=== PATIENT | female | born 1995 ===

== ENCOUNTER 2019-10-19 20:50 | Outpatient (CLI) | payer OTHER ==
[~2019-10-19] VITALS: Ht 160 cm; Wt 101.7 kg
--- NOTE | 2019-10-19 20:50 | NUR ---
TARI TRAMMELL presented to unit via from ED, accompanied by FAMILY, with c/o PRESSURE 37 WKS PREG. TARI TRAMMELL weighed, gowned, voided, and to bed. EFHM and TOCO applied, VS taken. TARI TRAMMELL oriented to bed controls, call light, TV, heat, and A/C controls.
--- NOTE | 2019-10-19 21:00 | NUR ---
sve performed 3cm/75%
[2019-10-19] MEDS ORDERED: PREN-142 PO (21:03)
[2019-10-19 21:15] VITALS: BP 129/80
[2019-10-19 21:18] LABS: BILIRUBIN,URINE NEGATIVE (NEGATIVE); CLARITY,URINE CLEAR; COLOR,URINE YELLOW; GLUCOSE, URINE (UA) 3+ (NEGATIVE); KETONES,URINE NEGATIVE (NEGATIVE); LEUKOCYTE ESTERASE ,URINE 3+ (NEGATIVE); NITRITE,URINE NEGATIVE (NEGATIVE); PROTEIN,URINE NEGATIVE (NEGATIVE)
[2019-10-19 21:20] VITALS: BP 125/71
[2019-10-19 21:27] LABS: BACTERIA,URINE FEW /HPF; WBC,URINE 25-50 /HPF
[2019-10-19 22:14] VITALS: BP 141/80
--- NOTE | 2019-10-19 22:14 | NUR ---
notified of pt's arrival, exam, sve, ctx pattern, u/a results. Discharge order received.
[2019-10-19 22:25] VITALS: BP 127/79
--- NOTE | 2019-10-19 22:30 | NUR ---
Discharge instructions verbalized with patient. labor precautions given. pt verbalized understanding. pt dc'd home with family at side. will follow up with
--- NOTE | 2019-10-21 10:38 | Physician Query-Final Dx ---
Clinic Account Progress/Dx Physician Query: Please give diagnosis Please include # weeks gestation Date of Service Oct 19, 2019 at 20:50 ALETA GREGORIO Oct 21, 2019 10:38
[2019-10-25] MEDS ORDERED: IBUP-844 PO (22:55)
[2019-10-25] MEDS ORDERED: DOCU100C37 PO (22:55)
[2019-10-25] MEDS ORDERED: ACHD5005 PO (22:55)
[2019-10-25] MEDS ORDERED: DIBU30OI TOP (22:55)
[2019-10-25] MEDS ORDERED: BENZ78AE2 TP (22:55)
== END 2019-10-19 22:30 | disposition home or self-care (01) ==
LOC: WSo 20:50 → LDRP 20:50 → WSo 22:30
PROVIDERS: ATTEND Obstetrics & Gynecology
DX: O26.893 Other specified pregnancy related conditions, third trimester (principal); R10.2 Pelvic and perineal pain; Z3A.37 37 weeks gestation of pregnancy
CPT/HCPCS: 81000; 87088; 99213

== ENCOUNTER 2019-10-25 02:48 | Inpatient (IN) | payer OTHER ==
[~2019-10-25] VITALS: Ht 160 cm; Wt 102.9 kg
[2019-10-25] VITALS (83 sets, daily range): BP systolic 75–147; BP diastolic 36–95
[~2019-10-25 02:48] MED LIST: PREN-142 PO
--- NOTE | 2019-10-25 02:55 | NUR ---
TARI ASTORGA presented to unit via ambulation from ED, accompanied by family, with c/o CONTRACTIONS. TARI ASTORGA weighed, gowned, voided, and to bed. EFHM and TOCO applied, VS taken. TARI ASTORGA oriented to bed controls, call light, TV, heat, and A/C controls.
--- NOTE | 2019-10-25 06:05 | NUR ---
0605: Strip reviewed with Dr. Wellington at this time. 0607: orders to admit pt and and start IV at this time, then we will break water after IV is placed.
[2019-10-25] MEDS ORDERED: D5 LR IV SOLUTION 1,000 ML IV ONE (06:07)
--- NOTE | 2019-10-25 06:13 | History & Physical-OB ---
OB - Chief Complaint & HPI Date/Time Date of Admission: Date of Admission: 10/25/2020 Date seen by a Provider: Oct 25, 2019 Time Seen by a Provider: 06:12 Chief Complaint/History OB-Reason for Admission/Chief: Onset of Labor Hx : 1 Hx Para: 0 Expected Date of Delivery: Nov 05, 2019 Gestational Age in Weeks: 38 Gestational Age in Days: 3 Other reason for admission: Prolonged tachycardia Admission Nurse Assessment Rev: Yes History of Labs B pos Antibody neg RI RPR NR HBsAg NR HIV NR GC neg GBS pos Allergies and Home Medications Allergies Coded Allergies: No Known Drug Allergies (Unverified , 10/19/19) Home Medications Vit No.124/Iron/FA 1 Each Tablet, 1 EACH PO DAILY, (Reported) Patient Home Medication List Home Medication List Reviewed: Yes OB - History Hx of Present Care: Yes Ultrasounds: Normal mid trimester US Obstetrical Complications: None Medical Complications: None Obstetrical History Hx : 1 Hx Para: 0 Patient Past Medical History n/a Social History/Family History Recent Infectious Disease Expo: No Alcohol Use: Denies Use Recreational Drug Use: No 2nd Hand Smoke Exposure: No Immunizations Date of Influenza Vaccine: Jun 30, 2019 OB - Admission Exam Physical Exam Vitals: Vital Signs 10/25/19 03:25 Temp 36.6 Pulse 120 Resp 18 Pulse Ox 99 O2 Delivery Room Air HEENT: NCAT Heart: Rhythm Normal Lungs: Clear Abdomen: Gravid Extremities: Normal Reflexes: Normal Cervical Dilatation: 3cm Effacement: 75% Station: -1 Membranes: Intact Amniotic Fluid: Clear Heart Rate: 130's Accelerations: Accelerations Present Decelerations: No Decelerations Short Term Variability: Present Half-Way Variability: Average (6-25) Contractions on Admission: < 5 Minutes Apart Intensity: Firm OB - Assessment/Plan/Diagnosis Assessment Assessment: active labor Admission Dx 24 yo @ 38.3 weeks Active labor Prolonged tachycardia GBS pos Admission Status: Inpatient Order (span 2 midnights) Reason for Inpatient Admission: 38 week IUP, Active labor Plan Plan: Other (AROM and epidural at request. Start GBS prophylaxis) EAMON VALENCIA DO Oct 25, 2019 06:13
[2019-10-25] MEDS ORDERED: AMPICILLIN FOR IV USE 2,000 MG in WATER (STERILE) FOR INJECTION 14.8 ML IV ONE (06:15)
[2019-10-25] MEDS ORDERED: AMPICILLIN FOR IV USE 2,000 MG VIAL ONE (06:27)
[2019-10-25] MEDS ORDERED: WATER (STERILE) FOR INJECTION 20 ML ONE (06:34)
[2019-10-25] MEDS ORDERED: D5 LR IV SOLUTION 1,000 ML IV SCH (07:13)
[2019-10-25] MEDS ORDERED: MINERAL OIL CONCENTRATE 99.9% 15 ML UDC TOP PRN (07:15)
[2019-10-25] MEDS ORDERED: SUFENTA 0.6MCG/ML BUPIVA 0.125 100 ML ONE (07:19)
[2019-10-25 07:24] LABS: BASOPHILS % (AUTO) 0 % (0-10); EOSINOPHILS # (AUTO) 0.1 10^3/uL (0.0-0.3); EOSINOPHILS % (AUTO) 1 % (0-10); HEMATOCRIT 35 % (35-52); HEMOGLOBIN 11.7 G/DL (11.5-16.0); LYMPHOCYTES # (AUTO) 1.9 X 10^3 (1.0-4.0); LYMPHOCYTES % (AUTO) 17 % (12-44); MEAN CORPUSCULAR HEMOGLOBIN 28 PG (25-34); MEAN CORPUSCULAR HGB CONC 33 G/DL (32-36); MEAN CORPUSCULAR VOLUME 84 FL (80-99); MONOCYTES # (AUTO) 0.8 X 10^3 (0.0-1.0); MONOCYTES % (AUTO) 7 % (0-12); NEUTROPHILS # (AUTO) 8.2 X 10^3 (1.8-7.8); NEUTROPHILS % (AUTO) 75 % (42-75); PLATELET COUNT 303 10^3/uL (130-400); RED CELL DISTRIBUTION WIDTH 13.5 % (10.0-14.5); WHITE BLOOD COUNT 10.9 10^3/uL (4.3-11.0)
[2019-10-25] MEDS ORDERED: BUPIVACAINE 0.25% 30 ML (SENSORCAINE) VIAL ONE (08:03)
[2019-10-25] MEDS ORDERED: fentaNYL INJECTION 100 MCG/2 ML AMP ONE (08:03)
[2019-10-25] MEDS: EPIDURAL (SUFENTA 0.6MCG/ML BUPIVA 0.125%) 100 ML BAG EPI SCH ×2 (08:35→17:12)
--- NOTE | 2019-10-25 08:35 | NUR ---
0807 here for epidural placement. Procedure explained, consent reviewed and signed by anesthesia. Questions answered to patient's satisfaction. Time out taken to verify correct patient/procedure. 0811 Patient up to side of bed, assisted into sitting position. 0815 Betadine prep done x3 and sterile drape applied. Local done, see anesthesia record. 0832 Test dose given, see anesthesia record for drug and dosage. 0831 Epidural catheter secured in place. Epidural placement complete. 0835 Assisted back into bed, monitors adjusted. Epidural dosed, see anesthesia record. 0835 Epidural of Sufenta/Bupvicaine @12cc/hr stated per pump. Patient tolerated procedure well.
[2019-10-25] MEDS: OXYTOCIN/NORMAL SALINE 500 ML IV SCH ×2 (09:29→22:48)
[2019-10-25] MEDS: AMPICILLIN FOR IV USE 1,000 MG in WATER (STERILE) FOR INJECTION 7.4 ML IV SCH ×3 (10:27→18:39)
[2019-10-25] MEDS ORDERED: LACTATED RINGERS 1,000 ML IV ONE (11:25)
[2019-10-25] MEDS ORDERED: NALOXONE 0.4 MG/ML 1 ML (NARCAN) VIAL IV PRN (11:30)
[2019-10-25] MEDS ORDERED: diphenhydrAMINE 50 MG/ML INJ (BENADRYL) IV PRN (11:30)
[2019-10-25] MEDS ORDERED: CATHETER FLUSH 10 ML SYR IV PRN (11:30)
[2019-10-25] MEDS ORDERED: ONDANSETRON 4 MG/2 ML (SDV) Z0FRAN IV PRN (11:30)
[2019-10-25] MEDS ORDERED: CATHETER FLUSH 10 ML SYR IV SCH (14:00)
[2019-10-25] MEDS ORDERED: LIDOCAINE/EPI 2% 1:200,00 (XYLOCAINE) 10 ML VIAL ONE (21:37)
[2019-10-25] MEDS ORDERED: OXYTOCIN/NORMAL SALINE 500 ML IV SCH (22:46)
--- NOTE | 2019-10-25 22:53 | OB Labor & Delivery Record ---
L&D History Date of Service Date of Service: Oct 25, 2019 History Expected Date of Delivery: Nov 05, 2019 Gestational Age in Weeks: 38 Hx : 1 Hx Para: 0 Complications Events: Routine care Operative Indications (Cesarea: N/A-Vaginal Delivery Intrapartal Events: None L&D Stage1 Stage One Onset of Labor - Date: Oct 25, 2019 Monitors and Tracing Monitor Mode: External Heart Rate: 175 Monitor Decelerations: None Station: -1 Senior Living Variability: Average (6-10) Short Term Variability: Present Presentation: Vertex Vital Signs VS - Last 72 Hours, by Label 10/25/19 10/25/19 10/25/19 10/25/19 03:05 03:25 07:47 08:00 Temp 36.1 36.6 37.2 36.6 Pulse 120 120 113 120 Resp 20 18 20 18 B/P (MAP) 127/77 (94) 125/72 (89) Pulse Ox 97 99 99 99 O2 Delivery Room Air Room Air Room Air Room Air 10/25/19 10/25/19 10/25/19 10/25/19 08:18 08:31 08:34 08:37 Pulse 114 112 120 130 Resp 20 20 20 22 B/P (MAP) 112/78 (89) 113/65 (81) 91/56 (68) 79/42 (54) Pulse Ox 99 99 99 99 O2 Delivery Room Air Room Air Room Air Room Air 10/25/19 10/25/19 10/25/19 10/25/19 08:38 08:39 08:43 08:45 Temp 37.6 Pulse 130 129 100 Resp 20 20 18 B/P (MAP) 79/42 (54) 75/36 (49) 99/50 (66) Pulse Ox 99 100 95 O2 Delivery Room Air Room Air Room Air 10/25/19 10/25/19 10/25/19 10/25/19 08:47 08:53 08:55 09:00 Pulse 125 136 146 143 Resp 18 18 18 18 B/P (MAP) 98/51 (67) 91/53 (66) 117/65 (82) 112/55 (74) Pulse Ox 97 99 100 100 O2 Delivery Room Air Room Air Room Air Room Air 10/25/19 10/25/19 10/25/19 10/25/19 09:05 09:10 09:15 09:20 Pulse 127 131 131 129 Resp 18 18 20 20 B/P (MAP) 112/66 (81) 110/72 (85) 108/70 (83) 106/65 (79) Pulse Ox 97 99 99 97 O2 Delivery Room Air Room Air Room Air Room Air 10/25/19 10/25/19 10/25/19 10/25/19 09:25 09:30 09:35 09:40 Temp 36.7 Pulse 115 120 116 125 Resp 20 20 20 20 B/P (MAP) 118/67 (84) 116/72 (87) 109/68 (82) 111/68 (82) Pulse Ox 100 98 99 96 O2 Delivery Room Air Room Air Room Air Room Air 10/25/19 10/25/19 10/25/19 10/25/19 09:45 09:50 09:55 10:00 Pulse 127 125 127 132 Resp 20 20 20 20 B/P (MAP) 101/66 (78) 98/66 (77) 113/61 (78) 113/68 (83) Pulse Ox 98 98 97 99 O2 Delivery Room Air Room Air Room Air Room Air 10/25/19 10/25/19 10/25/19 10/25/19 10:15 10:30 10:45 11:00 Temp 37.4 Pulse 127 124 126 122 Resp 20 20 20 18 B/P (MAP) 101/66 (78) 103/67 (79) 109/64 (79) 102/56 (71) Pulse Ox 98 98 98 99 O2 Delivery Room Air Room Air Room Air Room Air 10/25/19 10/25/19 10/25/19 10/25/19 11:15 11:30 11:45 12:00 Pulse 130 111 107 134 Resp 18 18 18 18 B/P (MAP) 119/76 (90) 114/68 (83) 119/72 (88) 95/61 (72) Pulse Ox 98 97 95 97 O2 Delivery Room Air Room Air Room Air Room Air 10/25/19 10/25/19 10/25/19 10/25/19 12:15 12:30 12:45 13:00 Temp 37.7 Pulse 110 118 124 106 Resp 18 18 18 18 B/P (MAP) 117/72 (87) 104/64 (77) 108/70 (83) 114/71 (85) Pulse Ox 97 96 98 97 O2 Delivery Room Air Room Air Room Air Room Air 10/25/19 10/25/19 10/25/19 10/25/19 13:15 13:30 13:45 14:00 Temp 37.1 Pulse 105 112 117 122 Resp 18 18 18 18 B/P (MAP) 123/75 (91) 108/68 (81) 108/74 (85) 116/72 (87) Pulse Ox 99 97 99 98 O2 Delivery Room Air Room Air Room Air Room Air 10/25/19 10/25/19 10/25/19 10/25/19 14:15 14:30 14:45 15:00 Pulse 100 116 110 116 Resp 18 18 18 18 B/P (MAP) 118/74 (89) 102/71 (81) 126/77 (93) 117/78 (91) Pulse Ox 95 95 99 99 O2 Delivery Room Air Room Air Room Air Room Air 10/25/19 10/25/19 10/25/19 10/25/19 15:15 15:30 15:45 16:00 Temp 37.2 Pulse 105 110 107 111 Resp 18 18 18 18 B/P (MAP) 119/81 (94) 114/74 (87) 117/80 (92) 121/84 (96) Pulse Ox 99 98 100 100 O2 Delivery Room Air Room Air Room Air Room Air 10/25/19 10/25/19 10/25/19 10/25/19 16:15 16:30 16:40 17:00 Temp 37.6 Pulse 113 99 111 108 Resp 18 18 18 18 B/P (MAP) 125/86 (99) 125/86 (99) 123/71 (88) 118/79 (92) Pulse Ox 99 97 100 100 O2 Delivery Room Air Room Air Room Air Room Air 10/25/19 10/25/19 10/25/19 10/25/19 17:15 17:30 17:45 18:00 Pulse 103 112 101 115 Resp 18 18 18 18 B/P (MAP) 129/79 (96) 147/73 (97) 147/73 (97) 135/71 (92) Pulse Ox 100 100 100 100 O2 Delivery Room Air Room Air Room Air Room Air 10/25/19 10/25/19 10/25/19 10/25/19 18:15 18:30 18:45 19:00 Pulse 101 112 111 114 Resp 18 18 18 18 B/P (MAP) 128/73 (91) 123/81 (95) 117/79 (92) 134/83 (100) Pulse Ox 100 100 100 100 O2 Delivery Room Air Room Air Room Air Room Air 10/25/19 10/25/19 10/25/19 10/25/19 19:15 19:30 19:45 20:00 Temp 36.8 Pulse 109 110 118 123 Resp 18 18 18 18 B/P (MAP) 135/95 (108) 103/59 (74) 125/83 (97) 128/82 (97) Pulse Ox 100 100 100 99 O2 Delivery Room Air Room Air Room Air Room Air 10/25/19 10/25/19 20:15 20:30 Pulse 115 123 Resp 18 18 B/P (MAP) 129/81 (97) 111/58 (75) Pulse Ox 100 100 O2 Delivery Room Air Room Air Rupture of Membranes Spontaneous Ruture of Membrane: No Amniotic Membrane Rupture Time: 0700 Amniotic Membrane Fluid Desc.: Clear Vaginal Bleeding Description: Normal Show Induction/Anesthesia Epidural Cath Placement - Time: 0831 Progress/Notes Patient admitted and augmented in labor due to prolonged tachycardia, AROM and Pitocin to max dose of 20 mu. Progressed to complete and +2 station L&D Stage2 Stage Two Stage II Date: Oct 25, 2019 Monitors and Tracing Monitor Mode: External Heart Rate: 175 Monitor Accelerations: Uniform Monitor Decelerations: None [employer] Counsel Variability: Average (6-10) Short Term Variability: Present Position: Right Occiput Anterior Presentation: Vertex Cord Descript/Complications Cord Vessel Description: 3 Vessels Complications nuchal cord x 1 Delivery Type Infant Delivery Method: Spontaneous Vaginal Anterior Shoulder: Right Episiotomy/Perineal Laceration Laceraction(s)/Extensions: Yes Episiotomy Description: Perineal Extension/lac, 2nd degree Location Modifier: Right Degree (describe repair) 2nd degree perineal laceration repaired using 3-0 rapide in usual fashion Condition of Delivery 1 minute Comment: 7 5 minute Comment: 8 Notes Live female infant weight pending Condition of Condition of Infant: Living Exam: No Observed Abnormalities Resuscitation Resuscitation: N/A - Spontaneous Resp L&D Stage3 Stage Three Stage III Date: Oct 25, 2019 Pictocin Pitocin Administration mu/min: 20 Pitocin ml/hr: 20 Pitocin Administration Comment: 30 mu wide open at delivery of placenta Placenta Delivery Placenta Delivery: Spontaneous Delivery Summary Summary Estimated blood loss (mL): 350 Attending at delivery: Eamon Valencia DO Condition of Delivery Examined: Cervix Examined, Uterus Explored Post Hemorrhage: No Condition of Mother stable Condition of (s) stable EAMON VALENCIA DO Oct 25, 2019 10:53 pm
[2019-10-25] MEDS ORDERED: DOCU100C37 PO (22:55)
[2019-10-25] MEDS ORDERED: DIBU30OI TOP (22:55)
[2019-10-25] MEDS ORDERED: BENZ78AE2 TP (22:55)
[2019-10-25] MEDS ORDERED: ACHD5005 PO (22:55)
[2019-10-25] MEDS ORDERED: IBUP-844 PO (22:55)
--- NOTE | 2019-10-25 22:56 | Discharge Inst-Women's Service ---
Discharge Inst-Women's Serv Depart Medication/Instructions New, Converted or Re-Newed RX: RX on Chart Final Diagnosis PPD 2 NVD Problems Reviewed?: Yes Consults/Follow Up Additional Follow Up: Yes Orders/Referrals Dr. Valencia in 6 weeks Activity Driving Instructions: No Driving for 1 Week NO SMOKING: NO SMOKING Nothing Inside Vagina: No Douching, No [place], No Tampons Diet Discharge Diet: No Restrictions Symptoms to Report to : Bleeding Excessive, Pain Increased, Fever Over 101 D egrees F, Vaginal Bleeding Increase, Questions/Concerns For Any Problems or Questions: Contact Your Physician EAMON AVLENCIA DO Oct 25, 2019 10:56 pm
[2019-10-25] MEDS ORDERED: BENZOCAINE/MENTHOL (DERMOPLAST) 56 ML CAN TP PRN (23:00)
[2019-10-25] MEDS ORDERED: DIBUCAINE (NUPERCAINAL) 1% OINT 30 GM TOP PRN (23:00)
[2019-10-25] MEDS ORDERED: WITCH HAZEL(TUCKS) 40 EA JAR TOP PRN (23:00)
[2019-10-25] MEDS ORDERED: TETANUS,DIPTH,PERTUSS P/F (BOOSTRIX) 0.5 ML VIAL IM ONE (23:00)
[2019-10-25] MEDS ORDERED: MEASLES,MUMPS,RUBELLA 1 EA INJ SQ ONE (23:00)
[2019-10-25] MEDS: IBUPROFEN 600 MG (MOTRIN) TAB PO SCH (23:04)
[2019-10-26] VITALS (8 sets, daily range): BP systolic 95–120; BP diastolic 50–74
--- NOTE | 2019-10-26 01:50 | NUR ---
Pt states is ready to move to room. Left leg still heavy. Pericare performed per this RN. Fundus firm. No excessive bleeding noted. New v pad and underwear in place. Pt assisted into wheelchair with two RNs at side. To room. Pt oriented to new room. papers discussed. Pt denies needing anything at time.
[2019-10-26] MEDS: IBUPROFEN 600 MG (MOTRIN) TAB PO SCH ×3 (04:57→19:08)
[2019-10-26 06:43] LABS: BASOPHILS % (AUTO) 0 % (0-10); EOSINOPHILS # (AUTO) 0.1 10^3/uL (0.0-0.3); EOSINOPHILS % (AUTO) 1 % (0-10); HEMATOCRIT 23 % (35-52); HEMOGLOBIN 7.7 G/DL (11.5-16.0); LYMPHOCYTES # (AUTO) 2.3 X 10^3 (1.0-4.0); LYMPHOCYTES % (AUTO) 22 % (12-44); MEAN CORPUSCULAR HEMOGLOBIN 29 PG (25-34); MEAN CORPUSCULAR HGB CONC 34 G/DL (32-36); MEAN CORPUSCULAR VOLUME 85 FL (80-99); MEAN PLATELET VOLUME 10.9 FL (7.4-10.4); MONOCYTES # (AUTO) 0.9 X 10^3 (0.0-1.0); MONOCYTES % (AUTO) 9 % (0-12); NEUTROPHILS # (AUTO) 7.1 X 10^3 (1.8-7.8); NEUTROPHILS % (AUTO) 68 % (42-75); PLATELET COUNT 215 10^3/uL (130-400); RED CELL DISTRIBUTION WIDTH 13.1 % (10.0-14.5); WHITE BLOOD COUNT 10.3 10^3/uL (4.3-11.0)
--- NOTE | 2019-10-26 08:30 | Anesthesia-Regional Post-Op ---
Regional Patient Condition Mental Status: Alert, Oriented x3 Circulation: Same as Pre-Op Headache: Absent Sensation: Full Recovery Motor Block: Absent Post Op Complications Complications None Follow Up Care/Instructions Patient Instructions None needed. Anesthesia/Patient Condition Patient is doing well, no complaints, stable vital signs, no apparent adverse anesthesia problems. No complications reported per nursing. YOLANDE MCALLISTER CRNA Oct 26, 2019 08:30
[2019-10-26] MEDS: DOCUSATE SODIUM 100 MG (COLACE) CAP PO SCH ×2 (09:20→21:10)
[2019-10-26] MEDS: PRENATAL VITAMIN 1 EA TAB PO SCH (09:20)
--- NOTE | 2019-10-26 09:20 | NUR ---
ASSESSMENT COMPLETED, SEE INTERVENTIONS.
--- NOTE | 2019-10-26 10:02 | Postpartum Progress Note ---
Note Note Day # 1 Subjective: Patient is without complaints. Ambulating, voiding. Tolerating a regular diet without nausea or vomiting. Normal lochia. Pain is well controlled with oral pain medications. Objective: Physical Exam: General - Alert and oriented, no apparent distress Abdomen - Soft, appropriately tender to palpation, non-distended, fundus firm at umbilicus Extremities - no edema, negative Claude's bilaterally Assessment: PPD 1 NVD Acute blood loss anemia Plan: Routine care. Encourage breast feeding. Encourage ambulation. Ferrous sulfate supplementation. Plan for discharge tomorrow Vitals - Labs Vital Signs - I&O Vital Signs Date Time Temp Pulse Resp B/P (MAP) Pulse Ox O2 Delivery O2 Flow Rate FiO2 10/26/19 05:00 36.0 101 18 103/61 (75) 98 10/26/19 01:24 35.8 116 18 97/55 (69) Room Air 10/26/19 00:54 121 18 95/50 (65) Room Air 10/26/19 00:31 36.0 115 18 100/55 (70) Room Air 10/25/19 23:55 37.2 117 18 101/59 (73) Room Air 10/25/19 23:24 37.5 131 18 100/59 (73) Room Air 10/25/19 23:16 37.4 131 18 92/60 (71) Room Air 10/25/19 22:57 37.2 122 18 118/58 (78) Room Air 10/25/19 22:43 134 18 117/61 (79) Room Air 10/25/19 22:30 37.4 151 18 103/67 (79) Room Air 10/25/19 22:18 157 18 98/48 (65) Room Air 10/25/19 22:00 121 18 135/64 (87) Room Air 10/25/19 21:45 10/25/19 21:41 120 18 141/86 (104) 100 Room Air 10/25/19 21:38 117 18 119/74 (89) 100 Room Air 10/25/19 21:30 38.0 112 18 104/62 (76) 100 Room Air 10/25/19 21:15 107 18 116/54 (74) 100 Room Air 10/25/19 21:00 116 18 105/64 (78) 100 Room Air 10/25/19 20:45 118 18 106/68 (81) 100 Room Air 10/25/19 20:30 123 18 111/58 (75) 100 Room Air 10/25/19 20:15 115 18 129/81 (97) 100 Room Air 10/25/19 20:00 123 18 128/82 (97) 99 Room Air 10/25/19 19:45 36.8 118 18 125/83 (97) 100 Room Air 10/25/19 19:30 110 18 103/59 (74) 100 Room Air 10/25/19 19:15 109 18 135/95 (108) 100 Room Air 10/25/19 19:00 114 18 134/83 (100) 100 Room Air 10/25/19 18:45 111 18 117/79 (92) 100 Room Air 10/25/19 18:30 112 18 123/81 (95) 100 Room Air 10/25/19 18:15 101 18 128/73 (91) 100 Room Air 10/25/19 18:00 115 18 135/71 (92) 100 Room Air 10/25/19 17:45 101 18 147/73 (97) 100 Room Air 10/25/19 17:30 112 18 147/73 (97) 100 Room Air 10/25/19 17:15 103 18 129/79 (96) 100 Room Air 10/25/19 17:00 37.6 108 18 118/79 (92) 100 Room Air 10/25/19 16:40 111 18 123/71 (88) 100 Room Air 10/25/19 16:30 99 18 125/86 (99) 97 Room Air 10/25/19 16:15 113 18 125/86 (99) 99 Room Air 10/25/19 16:00 37.2 111 18 121/84 (96) 100 Room Air 10/25/19 15:45 107 18 117/80 (92) 100 Room Air 10/25/19 15:30 110 18 114/74 (87) 98 Room Air 10/25/19 15:15 105 18 119/81 (94) 99 Room Air 10/25/19 15:00 116 18 117/78 (91) 99 Room Air 10/25/19 14:45 110 18 126/77 (93) 99 Room Air 10/25/19 14:30 116 18 102/71 (81) 95 Room Air 10/25/19 14:15 100 18 118/74 (89) 95 Room Air 10/25/19 14:00 122 18 116/72 (87) 98 Room Air 10/25/19 13:45 37.1 117 18 108/74 (85) 99 Room Air 10/25/19 13:30 112 18 108/68 (81) 97 Room Air 10/25/19 13:15 105 18 123/75 (91) 99 Room Air 10/25/19 13:00 106 18 114/71 (85) 97 Room Air 10/25/19 12:45 124 18 108/70 (83) 98 Room Air 10/25/19 12:30 37.7 118 18 104/64 (77) 96 Room Air 10/25/19 12:15 110 18 117/72 (87) 97 Room Air 10/25/19 12:00 134 18 95/61 (72) 97 Room Air 10/25/19 11:45 107 18 119/72 (88) 95 Room Air 10/25/19 11:30 111 18 114/68 (83) 97 Room Air 10/25/19 11:15 130 18 119/76 (90) 98 Room Air 10/25/19 11:00 122 18 102/56 (71) 99 Room Air 10/25/19 10:45 126 20 109/64 (79) 98 Room Air 10/25/19 10:30 37.4 124 20 103/67 (79) 98 Room Air 10/25/19 10:15 127 20 101/66 (78) 98 Room Air I & O 10/26/19 06:59 Intake Total 4029.6 ml Balance 4029.6 ml Labs Laboratory Tests 10/26/19 06:15: White Blood Count 10.3, Red Blood Count 2.68L, Hemoglobin 7.7#L, Hematocrit 23L, Mean Corpuscular Volume 85, Mean Corpuscular Hemoglobin 29, Mean Corpuscular Hemoglobin Concent 34, Red Cell Distribution Width 13.1, Platelet Count 215, Mean Platelet Volume 10.9H, Neutrophils (%) (Auto) 68, Lymphocytes (%) (Auto) 22, Monocytes (%) (Auto) 9, Eosinophils (%) (Auto) 1, Basophils (%) (Auto) 0, Neutrophils # (Auto) 7.1, Lymphocytes # (Auto) 2.3, Monocytes # (Auto) 0.9, Eosinophils # (Auto) 0.1, Basophils # (Auto) 0.0 EAMON VALENCIA DO Oct 26, 2019 10:02
--- NOTE | 2019-10-26 11:05 | NUR ---
DR VALENCIA HERE NEW ORDERS.
--- NOTE | 2019-10-26 11:30 | NUR ---
SCHEDULED MOTRIN GIVEN, PT UP TO SHOWER.
[2019-10-26] MEDS: FERROUS SULF 325 MG (IRON) TAB PO SCH (16:54)
[2019-10-26] MEDS: HYDROcodone/APAP 5 MG/325 MG (LORTAB) TAB PO PRN (16:55)
--- NOTE | 2019-10-26 19:15 | NUR ---
REPORT RECEIVED AND CARES RESUMED BY THIS NURSE.
--- NOTE | 2019-10-26 20:20 | NUR ---
PT SITTING UP IN CHAIR. MANY VISITORS IN ROOM. PT DENIES ANY PAIN OR NEEDS AT THIS TIME. WILL RETURN FOR ASSESSMENT.
--- NOTE | 2019-10-26 21:00 | NUR ---
COMPLETE SHIFT ASSESSMENT DONE. PT GETTING UP TO BATHROOM AT THIS TIME. STATES HAS NOT VOIDED SINCE THIS MORNING, BUT DOES NOT FEEL LIKE SHE IS RETAINING URINE. PT WILL CALL IF UNABLE TO VOID.
[2019-10-27] MEDS: IBUPROFEN 600 MG (MOTRIN) TAB PO SCH ×4 (00:40→23:39)
--- NOTE | 2019-10-27 00:40 | NUR ---
PT REPORTS INFANT HAS BREASTFED AND THEN BEEN SUPPLEMENTED WITH FORMULA AND IS TRYING TO GET HER TO BURP. PT DENIES ANY NEEDS OR C/O'S. MOTRIN ADMINISTERED.
--- NOTE | 2019-10-27 02:20 | NUR ---
PT SITTING IN BED WITH INFANT IN ARMS. DENIES ANY NEEDS OR C/O'S.
[2019-10-27 04:35] VITALS: BP 122/85
--- NOTE | 2019-10-27 05:20 | NUR ---
PT SITTING UP IN CHAIR ATTEMPTING TO BREASTFEED. NOT COOPERATING AT THIS TIME SHE IS SLEEPY. BOTTLE OFFERED.
--- NOTE | 2019-10-27 05:20 | NUR ---
PT AWAKE AND UP IN BATHROOM.
--- NOTE | 2019-10-27 07:00 | NUR ---
REPORT FROM DUSTY LORD.
[2019-10-27 09:15] VITALS: BP 120/66
[2019-10-27] MEDS: PRENATAL VITAMIN 1 EA TAB PO SCH (09:15)
[2019-10-27] MEDS: FERROUS SULF 325 MG (IRON) TAB PO SCH ×2 (09:15→17:25)
[2019-10-27] MEDS: DOCUSATE SODIUM 100 MG (COLACE) CAP PO SCH ×2 (09:15→23:38)
--- NOTE | 2019-10-27 09:15 | NUR ---
INITIAL ASSESSMENT COMPLETED, VSS, SEE INTERVENTIONS FOR DETAILED ASSESSMENTS, PLAN OF CARE EXPLAINED, NO QUESTIONS OR CONCERNS NOTED, FAMILY AT SIDE WILL MONITOR.
[2019-10-27] MEDS ORDERED: FERR325T18 PO (09:50)
--- NOTE | 2019-10-27 09:55 | Postpartum Progress Note ---
Note Note Day # 2 Subjective: Patient is without complaints. Ambulating, voiding. Tolerating a regular diet without nausea or vomiting. Normal lochia. Pain is well controlled with oral pain medications. Objective: Physical Exam: General - Alert and oriented, no apparent distress Abdomen - Soft, appropriately tender to palpation, non-distended, fundus firm at umbilicus Extremities - no edema, negative Claude's bilaterally Assessment: PPD 2 NVD Acute blood loss anemia Plan: Routine care. Encourage breast feeding. Encourage ambulation. Ferrous sulfate supplementation. Plan for discharge today Vitals - Labs Vital Signs - I&O Vital Signs Date Time Temp Pulse Resp B/P (MAP) Pulse Ox O2 Delivery O2 Flow Rate FiO2 10/27/19 04:35 36.3 103 18 122/85 (97) Room Air 10/26/19 21:05 36.4 113 18 117/74 (88) 98 Room Air 10/26/19 16:55 36.4 107 18 108/62 (77) 97 Room Air 10/26/19 12:30 36.4 109 18 98/61 (73) 99 Room Air EAMON VALENCIA DO Oct 27, 2019 09:55
[2019-10-27] MEDS: CATHETER FLUSH 10 ML SYR IV SCH ×2 (16:11→17:24)
[2019-10-27 17:00] VITALS: BP 113/65
--- NOTE | 2019-10-27 19:00 | NUR ---
D/C INSTRUCTIONS EXPLAINED TO PT/SO, SIGNED, NO QUESTIONS NOTED, PT VERBALIZES UNDERSTANDING OF FOLLOW UP CARE AND INSTRUCTIONS NO QUESTIONS NOTED.
--- NOTE | 2019-10-27 20:10 | NUR ---
PT AMB IN [place]. DENIES ANY NEEDS.
--- NOTE | 2019-10-27 21:05 | NUR ---
PT UP TO SHOWER.
[2019-10-27 22:30] VITALS: BP 116/68
[2019-10-27] MEDS: HYDROcodone/APAP 5 MG/325 MG (LORTAB) TAB PO PRN (23:39)
[2019-10-27 23:55] VITALS: BP 127/68
--- NOTE | 2019-10-27 23:55 | NUR ---
REQUESTED MEDS ADMINISTERED. DISCHARGE HOME CARES DISCUSSED. PT VERBALIZES UNDERSTANDING. PT DENIES ANY FURTHER NEEDS.
== END 2019-10-27 23:55 | disposition home or self-care (01) | DRG 806 ==
LOC: WSo 02:48 → LDRP 02:52 → WSo 06:10 → LDRP 10-26 01:50
PROVIDERS: ADMIT Obstetrics & Gynecology; ATTEND Obstetrics & Gynecology
PROC: 10E0XZZ Delivery of Products of Conception, External Approach (ICD-10-PCS; principal; 2019-10-25)
PROC: 0KQM0ZZ Repair Perineum Muscle, Open Approach (ICD-10-PCS; 2019-10-25)
PROC: 0W8NXZZ Division of Female Perineum, External Approach (ICD-10-PCS; 2019-10-25)
DX: O99.824 Streptococcus B carrier state complicating childbirth (principal); O90.81 Anemia of the puerperium; D62 Acute posthemorrhagic anemia; O76 Abnormality in fetal heart rate and rhythm complicating labor and delivery; O69.81X0 Labor and delivery complicated by cord around neck, without compression, not applicable or unspecified; O70.1 Second degree perineal laceration during delivery; Z3A.38 38 weeks gestation of pregnancy; Z37.0 Single live birth
CPT/HCPCS: 36415; 85025; 86850; 86900; 86901; 99212

== ENCOUNTER → 2023-05-24 | Outpatient (CLI) | payer MEDICAID, OTHER ==
[~2023-05-24] MED LIST changes: +ACHD5005 PO; +BENZ78AE5 TP; +DIBU30OI TOP; +DOCU100C37 PO; +FERR325T18 PO; +IBUP-844 PO; +RT-ALBUTEROL SULF 2.5 MG/3 ML PRE-MIX VIAL INH ONE
== END ==
LOC: RT 09:10
PROVIDERS: ATTEND Nurse Practitioner Family
DX: J45.40 Moderate persistent asthma, uncomplicated (principal)
CPT/HCPCS: 94060; 94726; 94729

== ENCOUNTER 2023-07-15 11:56 | Emergency (ER) | payer OTHER ==
[~2023-07-15] VITALS: Ht 162 cm; Wt 99.0 kg
[~2023-07-15 11:56] MED LIST changes: -RT-ALBUTEROL SULF 2.5 MG/3 ML PRE-MIX VIAL INH ONE
--- NOTE | 2023-07-15 12:20 | ED GU-Female ---
General Chief Complaint: OB < 20 WEEKS Stated Complaint: VAG BLEEDING/7 WEEKS Nursing Triage Note: PATIENT REPORTS TO ED FOR VAGINAL BLEEDING. PATIENT IS ROUGHLY 7 WEEKS . PER PATIENT IT'S LIKE A LIGHT PERIOD, PATIENT REPORTS FEELING A GUSH OF BLOOD YESTERDAY WHEN SHE STOOD UP. SOME SMALL CLOTS. PATIENT AMB. TO ROOM 09 WITHOUT DIFFICULTY. Source: patient Exam Limitations: no limitations History of Present Illness Date Seen by Provider: Jul 15, 2023 Time Seen by Provider: 12:17 Initial Comments Patient is a 27-year-old female who is who presents ED with vaginal bleeding. Symptoms started yesterday with spotting around 3 PM. She states she is changing out pads every 2 hours. She denies of any profuse bleeding but noticed some blood with wiping and on the pad. She has some lower abdominal cramping but has had cramping throughout the . She is scheduled to follow-up with Dr. Wellington . she has not had a formal ultrasound. She denies any nausea, vomiting, diarrhea. No urinary symptoms or vaginal discharge. Patient denies history of diabetes or hypertension. She is not concern for sexual transmitted faction. Denies fever, chills, body aches, chest pain, shortness of breath. Denies of any known blood disorders. She states she had mild bleeding with her first at 15 weeks Allergies and Home Medications Allergies Coded Allergies: No Known Drug Allergies (Unverified , 10/19/19) Patient Home Medication List Home Medication List Reviewed: Yes Benzocaine/Menthol (Dermoplast Pain Relieving [place]) 78 Gm Aerosol, 56 ML TP UD PRN for PAIN- SEE INSTRUCTIONS Prescribed by: EAMON WELLINGTON on 10/25/19 225 Clindamycin HCl (Clindamycin HCl) 300 Mg Capsule, 300 MG PO BID Prescribed by: HOMERO HALL on 07/15/23 1505 Dibucaine (Dibucaine) 30 Gm Oint, 0 GM TOP UD PRN for PAIN- SEE INSTRUCTIONS Prescribed by: EAMON WELLINGTON on 10/25/19 225 Docusate Sodium (Docusate Sodium) 100 Mg Capsule, 100 MG PO BID PRN for CONSTIPATION-1ST LINE Prescribed by: EAMON WELLINGTON on 10/25/19 225 Ferrous Sulfate (Ferrous Sulfate) 325 Mg Tablet, 325 MG PO BID WITH MEALS Prescribed by: EAMON WELLINGTON on 10/27/19 0950 Hydrocodone Bit/Acetaminophen (Lortab 5 Mg Tablet) 1 Tab Tab, 1 TAB PO Q4H PRN for PAIN-MODERATE (5-7) Prescribed by: EAMON WELLINGTON on 10/25/192254 Ibuprofen (Ibu) 600 Mg Tablet, 600 MG PO Q6HR Prescribed by: EAMON WELLINGTON on 10/25/192254 Vit No.124/Iron/FA ( Vitamin Tablet) 1 Each Tablet, 1 EACH PO DAILY, (Reported) Entered as Reported by: ALIVIA NUNEZ on 10/19/192102 Review of Systems Review of Systems Constitutional: No chills, No diaphoresis EENTM: No ear pain, No blurred vision Respiratory: No cough Cardiovascular: No chest pain Gastrointestinal: abdominal pain; No diarrhea, No nausea, No vomiting Genitourinary: denies burning, denies discharge; other (Vaginal bleeding) Musculoskeletal: No back pain, No joint pain Skin: No change in color, No change in hair/nails All Other Systemes Reviewed Negative Unless Noted: Yes Past Lvbvvgl-Kluatj-Hdhpbu Hx Patient Social History Tobacco Use?: No Substance use?: No Alcohol Use?: No Pt feels they are or have been: No Immunizations Up To Date PED Vaccines UTD: Yes Seasonal Allergies Seasonal Allergies: Yes Past Medical History Surgery/Hospitalization HX: PMHX;PCOS SURG.-DENTAL SURG. Surgeries: No Respiratory: No Cardiac: No Neurological: No Last Menstrual Period: May 28, 2023 Female Reproductive Disorders: Denies Sexually Transmitted Disease: No HIV/AIDS: No Genitourinary: No Gastrointestinal: Yes Gastroesophageal Reflux Musculoskeletal: No Endocrine: No HEENT: No Loss of Vision: Denies Hearing Impairment: Denies Cancer: No Psychosocial: No Integumentary: No Blood Disorders: No Family Medical History Alzheimer's disease PATERNAL GRANDFATHER Asthma 19 FATHER Dementia PATERNAL GRANDFATHER Diabetes mellitus MATERNAL GRANDFATHER PATERNAL GRANDMOTHER Neoplasm MATERNAL GRANDMOTHER (OVARIAN CANCER) Severe allergy G8 SISTER Physical Exam Vital Signs Vital Signs - First Documented 07/15/23 12:02 Temp 36.9 Pulse 106 Resp 18 B/P (MAP) 129/96 (107) Pulse Ox 96 O2 Delivery Room Air Capillary Refill : Less Than 3 Seconds Height, Weight, BMI Height: '" Weight: lbs. oz. kg; 37.00 BMI Method: General Appearance: WD/WN, no apparent distress HEENT: PERRL/EOMI, normal ENT inspection, TMs normal, pharynx normal Neck: non-tender, full range of motion, supple, normal inspection Cardiovascular: regular rate, rhythm, no edema, no gallop, no JVD Respiratory: chest non-tender, lungs clear, normal breath sounds, no respiratory distress, no accessory muscle use Gastrointestinal: normal bowel sounds, non tender, soft, no organomegaly Pelvic: normal external exam, other (Mild blood and mucus in the vaginal canal. Cervix appears closed. No erythema and swelling of the cervix. No adnexal tenderness or cervical motion tenderness.) Back: normal inspection, no CVA tenderness, no vertebral tenderness Extremities: normal range of motion, non-tender, normal inspection, no pedal edema Neurologic/Psychiatric: bacteriology technician II-XII nml as tested, no motor/sensory deficits, alert, normal mood/affect, oriented x 3 Skin: normal color, warm/dry Progress/Results/Core Measures Suspected Sepsis SIRS Temperature: Pulse: 106 Respiratory Rate: 18 Laboratory Tests 07/15/23 12:20: White Blood Count 8.0 Blood Pressure 129 /96 Mean: 107 Laboratory Tests 07/15/23 12:20: Creatinine 0.84, INR Comment 0.9, Platelet Count 364, Total Bilirubin 0.3 Results/Orders Lab Results Laboratory Tests Test 07/15/23 12:02 07/15/23 12:20 07/15/23 12:32 Range/Units Urine Color YELLOW Urine Clarity CLEAR Urine pH 5.5 5-9 Urine Specific [place] >=1.030 1.016-1.022 Urine Protein 1+ H NEGATIVE Urine Glucose (UA) NEGATIVE NEGATIVE Urine Ketones NEGATIVE NEGATIVE Urine Nitrite NEGATIVE NEGATIVE Urine Bilirubin NEGATIVE NEGATIVE Urine Urobilinogen 0.2 < = 1.0 MG/DL Urine Leukocyte Esterase TRACE H NEGATIVE Urine RBC (Auto) 3+ H NEGATIVE Urine RBC 10-25 H /HPF Urine WBC 5-10 H /HPF Urine Squamous Epithelial Cells 5-10 /HPF Urine Crystals NONE /LPF Urine Bacteria TRACE /HPF Urine Casts NONE /LPF Urine Mucus NEGATIVE /LPF Urine Culture Indicated YES White Blood Count 8.0 4.3-11.0 10^3/uL Red Blood Count 4.76 3.80-5.11 10^6/uL Hemoglobin 13.7 11.5-16.0 g/dL Hematocrit 40 35-52 % Mean Corpuscular Volume 84 80-99 fL Mean Corpuscular Hemoglobin 29 25-34 pg Mean Corpuscular Hemoglobin Concent 34 32-36 g/dL Red Cell Distribution Width 12.9 10.0-14.5 % Platelet Count 364 130-400 10^3/uL Mean Platelet Volume 9.7 9.0-12.2 fL Immature Granulocyte % (Auto) 0 % Neutrophils (%) (Auto) 43 42-75 % Lymphocytes (%) (Auto) 40 12-44 % Monocytes (%) (Auto) 7 0-12 % Eosinophils (%) (Auto) 9 0-10 % Basophils (%) (Auto) 1 0-10 % Neutrophils # (Auto) 3.5 1.8-7.8 10^3/uL Lymphocytes # (Auto) 3.2 1.0-4.0 10^3/uL Monocytes # (Auto) 0.6 0.0-1.0 10^3/uL Eosinophils # (Auto) 0.7 H 0.0-0.3 10^3/uL Basophils # (Auto) 0.1 0.0-0.1 10^3/uL Immature Granulocyte # (Auto) 0.0 0.0-0.1 10^3/uL Prothrombin Time 12.7 12.2-14.7 SEC INR Comment 0.9 0.8-1.4 Activated Partial Thromboplast Time 26 24-35 SEC Sodium Level 138 135-145 MMOL/L Potassium Level 3.8 3.6-5.0 MMOL/L Chloride Level 107 98-107 MMOL/L Carbon Dioxide Level 20 L 21-32 MMOL/L Anion Gap 11 5-14 MMOL/L Blood Urea Nitrogen 11 7-18 MG/DL Creatinine 0.84 0.60-1.30 MG/DL Estimat Glomerular Filtration Rate 98 BUN/Creatinine Ratio 13 Glucose Level 106 H 70-105 MG/DL Calcium Level 9.2 8.5-10.1 MG/DL Corrected Calcium 9.3 8.5-10.1 MG/DL Total Bilirubin 0.3 0.1-1.0 MG/DL Aspartate Amino Transf (AST/SGOT) 32 5-34 U/L Alanine Aminotransferase (ALT/SGPT) 35 0-55 U/L Alkaline Phosphatase 80 40-136 U/L Total Protein 7.2 6.4-8.2 GM/DL Albumin 3.9 3.2-4.5 GM/DL Human Chorionic Gonadotropin, Quant 2624 H <5 MIU/ML Micro Results Microbiology 07/15/23 Wet Prep - Final, Complete My Orders Orders - CALOS ZAMORA Ua Culture If Indicated (07/15/23 12:05) Wet Prep (07/15/23 12:05) Cbc With Automated Diff (07/15/23 12:05) Comprehensive Metabolic Panel (07/15/23 12:05) Partial Thromboplastin Time (07/15/23 12:05) Protime With Inr (07/15/23 12:05) Heart Tones (07/15/23 12:05) Hcg,Quantitative (07/15/23 12:05) Neisseria Gonorrhea Swab (07/15/23 12:05) Chlamydia Trachomatis Swab (07/15/23 12:05) Abo Rh Type (07/15/23 12:13) Urine Culture (07/15/23 12:02) Us Ob<14 Wks Sngle W/Transvag (07/15/23 13:24) Vital Signs/I&O 07/15/23 07/15/23 12:02 15:16 Temp 36.9 36.9 Pulse 106 87 Resp 18 18 B/P (MAP) 129/96 (107) 119/94 Pulse Ox 96 98 O2 Delivery Room Air Room Air Capillary Refill : Less Than 3 Seconds Blood Pressure Mean: 107 Departure Communication (PCP) Patient G2, P1. Patient states is Close to 7 weeks . Last menstrual cycle was late April. Vaginal bleeding over the past day and a half. She reports bleeding on her pads which she has been changing out every 2 hours. Mild lower abdominal cramping. Had some mild bleeding with her first . No vomiting, fever, chills, bodies, chest pain, cough or shortness of breath . history of hypertension or diabetes. Generalized lab work, Rh type, pelvic exam was ordered. Pelvic exam did note some mild mucousy bloody drainage. Cervix appears closed. No cervical motion tenderness or adnexal tenderness. Urinalysis did note red blood cells and small amount of white blood cells and leukocytes. Negative nitrites. She has no specific urinary symptoms. She was not treated at this time and wait till culture. She is not concern for sexual transmitted infection. Cultures pending. No active section of course until results of cultures. Currently sexually active with 1 partner. Wet mount did note positive clue cells without trichomonas or yeast. Mild odor noted we will treat with oral clindamycin for BV. Some research shows that Flagyl is not recommended in the first trimester. CBC was grossly unremarkable. She is not anemic. Normal coags. B positive. Not a candidate for RhoGAM. Chemistry grossly unremarkable. Her beta quant did have returned at 2600. Ultrasound was ordered. Ultrasound Intrauterine gestational sac with no pole or yolk sac seen. This could represent an anembryonic , or possibly very early gestation. Concern for blighted ovum. At this time continue monitoring symptoms at home. She does follow Dr. Wellington. She has appointment follow-up in July. Recommend recheck of beta quant with them in 2 or 3 days. Review ultrasound in 2 weeks. continue monitoring bleeding. If any worsening pain or profuse blee ding with weakness to return back to ED. No sex intercourse at this time. Impression Primary Impression: Threatened miscarriage Disposition: HOME, SELF-CARE Condition: Stable Departure-Patient Inst. Decision time for Depature: 15:04 Referrals: [facility] (PCP/Family) Primary Care Physician Patient Instructions: Threatened Miscarriage (DC) Add. Discharge Instructions: At this time continue monitoring bleeding. If profuse bleeding, weakness dizziness to return back to ED. Potential miscarriage versus early . Recommend recheck of beta quant with her [employer] in 2 to 3 days. Level today was 2600. Positive for bacterial vaginosis will discharge with clindamycin 300 mg orally 70 All discharge instructions reviewed with patient and/or family. Voiced understanding. Scripts Clindamycin HCl (Clindamycin HCl) 300 Mg Capsule 300 MG PO BID for 7 Days, #14 CAP Prov: CALOS ZAMORA 07/15/23 CALOS ZAMORA Jul 15, 2023 12:20
[2023-07-15 12:27] LABS: BILIRUBIN,URINE NEGATIVE (NEGATIVE); CLARITY,URINE CLEAR; COLOR,URINE YELLOW; GLUCOSE, URINE (UA) NEGATIVE (NEGATIVE); KETONES,URINE NEGATIVE (NEGATIVE); LEUKOCYTE ESTERASE ,URINE TRACE (NEGATIVE); NITRITE,URINE NEGATIVE (NEGATIVE); PH,URINE 5.5 (5-9); PROTEIN,URINE 1+ (NEGATIVE)
[2023-07-15 12:28] LABS: BACTERIA,URINE TRACE /HPF
[2023-07-15 12:35] LABS: BASOPHILS # (AUTO) 0.1 10^3/uL (0.0-0.1); BASOPHILS % (AUTO) 1 % (0-10); EOSINOPHILS # (AUTO) 0.7 10^3/uL (0.0-0.3); EOSINOPHILS % (AUTO) 9 % (0-10); HEMATOCRIT 40 % (35-52); HEMOGLOBIN 13.7 g/dL (11.5-16.0); LYMPHOCYTES # (AUTO) 3.2 10^3/uL (1.0-4.0); LYMPHOCYTES % (AUTO) 40 % (12-44); MEAN CORPUSCULAR HEMOGLOBIN 29 pg (25-34); MEAN CORPUSCULAR HGB CONC 34 g/dL (32-36); MEAN CORPUSCULAR VOLUME 84 fL (80-99); MEAN PLATELET VOLUME 9.7 fL (9.0-12.2); MONOCYTES # (AUTO) 0.6 10^3/uL (0.0-1.0); MONOCYTES % (AUTO) 7 % (0-12); NEUTROPHILS # (AUTO) 3.5 10^3/uL (1.8-7.8); NEUTROPHILS % (AUTO) 43 % (42-75); PLATELET COUNT 364 10^3/uL (130-400)
[2023-07-15 12:52] LABS: ALBUMIN 3.9 GM/DL (3.2-4.5)
[2023-07-15 12:53] LABS: POTASSIUM 3.8 MMOL/L (3.6-5.0)
[2023-07-15 12:54] LABS: CALCIUM 9.2 MG/DL (8.5-10.1); INR 0.9 (0.8-1.4); PROTHROMBIN TIME PATIENT 12.7 SEC (12.2-14.7)
[2023-07-15 12:55] LABS: TOTAL PROTEIN 7.2 GM/DL (6.4-8.2)
[2023-07-15 12:57] LABS: BILIRUBIN,TOTAL 0.3 MG/DL (0.1-1.0)
[2023-07-15 12:59] LABS: CREATININE SERUM 0.84 MG/DL (0.60-1.30)
[2023-07-15] MEDS ORDERED: CLIN-144 PO (15:05)
[2023-07-15 15:16] VITALS: BP 119/94
--- NOTE | 2023-07-15 15:24 | Diagnostic Imaging Report ---
HISTORY: Lower abdominal pain, ectopic . COMPARISON: None. TECHNIQUE: Transabdominal and transvaginal ultrasound of the gravid uterus. COMPARISON: None. FINDINGS: The uterus appears normal in size. There is an intrauterine gestational sac within the endometrium. No pole or yolk sac is seen at this time. Mean sac diameter is 0.68 cm corresponding with 5 weeks and 2 days. The right ovary measures 3.3 x 1.2 x 1.9 cm and the left measures 3.6 x 1.6 x 2.0 cm. No free fluid is seen. No mass is seen. IMPRESSION: Intrauterine gestational sac with no pole or yolk sac seen. This could represent an anembryonic , or possibly very early gestation. Recommend follow-up transvaginal ultrasound in two weeks. Dictated by: Dictated on workstation # [id number]
== END 2023-07-15 15:16 | disposition home or self-care (01) ==
LOC: EDUNIT# 11:56 → ER 11:59
DX: O20.0 Threatened abortion (principal); Z3A.01 Less than 8 weeks gestation of pregnancy
CPT/HCPCS: 36415; 76801; 76817; 80053; 81000; 84702; 85025; 85610; 85730; 86900; 86901; 87088; 87210; 87491; 87591